=== PATIENT | male | born 1955 | race Caucasian/White ===

== ENCOUNTER 2020-12-27 18:38 | Observation (INO) ==
[2020-12-27 20:05] LABS: ABS Basophils 0.1 10^3/ul (0-0.2); ABS Eosinophils 0.1 10^3/ul (0-0.6); ABS Lymphocytes 1.7 10^3/ul (1.0-4.8); ABS Neutrophils 7.9 10^3/ul (1.5-7.7); Eosinophil % 0.6 %; Hematocrit 49 % (42-52); Hemoglobin 16.8 g/dL (14.0-18.0); Lymphocyte % 15.6 %; Mean Corpuscular HGB Conc 35 g/dL (31-36); Mean Corpuscular Hemoglobin 34 pg (27-31); Mean Corpuscular Volume 98 fL (80-94); Mean Platelet Volume 7.1 fL (7.4-10.4); Nucleated Red Blood Cells % 0.1; Platelet Count 208 10^3/uL (150-450); Red Blood Count 4.95 10^6 /uL (4.18-5.48); Red Cell Distribution Width 13 % (10-15); White Blood Count 10.8 10^3/uL (3.5-10.8)
[2020-12-27 20:22] LABS: Albumin 4.7 g/dL (3.2-5.2); Albumin/Globulin Ratio 1.4 (1-3); Calcium 10.4 mg/dL (8.6-10.3); Globulin 3.3 g/dL (2-4); Potassium 3.5 mmol/L (3.5-5.0); Total Bilirubin 0.9 mg/dL (0.2-1.0)
[2020-12-27 20:24] LABS: Troponin I 0.01 ng/mL (<0.03)
[2020-12-27] MEDS ORDERED: Iohexol 300 (CONTRAST) 10 ML SDV IV ONE (20:30)
[2020-12-27] MEDS ORDERED: Piperacillin/Tazobac ADVAN 3.375 GM in NS 0.9% 100 ml BAG 100 ML IV ONE (22:04)
[2020-12-27] MEDS ORDERED: HYDROmorphone 1 MG/1 ML SYRINGE IV SLOW PU PRN (22:31)
[2020-12-27] MEDS ORDERED: Ondansetron 4 mg VIAL 2 MG/ML 2 ml VIAL IV PRN (22:36)
[2020-12-27 23:07] LABS: Rapid COVID-19 Molecular Undetected (Undetected)
[2020-12-27] MEDS ORDERED: Zosyn per Pharmacy NOTE FOLLOW UP PRN (23:51)
[2020-12-28] MEDS: NS 0.9% 1000 ml BAG 1,000 ML IV SCH ×2 (01:11→11:23)
[2020-12-28 01:49] LABS: Urine Appearance Clear; Urine Bilirubin Negative (Negative); Urine Blood Negative (Negative); Urine Color Yellow; Urine Glucose Negative (Negative); Urine Ketones 1+ (Negative); Urine Nitrite Negative (Negative); Urine Protein Negative (Negative); Urine Urobilinogen Negative (Negative)
[2020-12-28 01:55] LABS: Urine Specific Gravity > 1.060 (1.002-1.030)
[2020-12-28] MEDS: Piperacillin/Tazobactam VIAL 3.375 GM in NS 0.9% 100 ml BAG 100 ML IVPB SCH ×2 (02:17→11:15)
[2020-12-28 08:12] LABS: Albumin 3.8 g/dL (3.2-5.2); Albumin/Globulin Ratio 1.5 (1-3); Globulin 2.5 g/dL (2-4); Potassium 3.6 mmol/L (3.5-5.0); Total Bilirubin 0.8 mg/dL (0.2-1.0); Total Protein 6.3 g/dL (6.4-8.9)
[2020-12-28] MEDS ORDERED: Ondansetron 4 mg VIAL 2 MG/ML 2 ml VIAL IV PRN (10:00)
[2020-12-28] MEDS ORDERED: Naloxone 0.4 mg VIAL 0.4 mg/ml 1 ml VIAL IV PRN (10:00)
[2020-12-28] MEDS ORDERED: fentaNYL 100 mcg/2 ml 50 MCG/ML VIAL IV PRN (10:00)
[2020-12-28] MEDS ORDERED: DiMENhydriNATE IV 50 mg/ml 1 ml VIAL IV PUSH PRN (10:00)
[2020-12-28] MEDS ORDERED: oxyCODONE/Acetamin 5/325 mg TAB PO PRN (10:00)
[2020-12-28] MEDS ORDERED: Bupivacaine 0.25% SDV 30 ML ONE (15:06)
[2020-12-28] MEDS ORDERED: Propofol 10 MG/ML 20 ML BTL ONE (15:47)
[2020-12-28] MEDS ORDERED: fentaNYL 100 mcg/2 ml 50 MCG/ML VIAL ONE (15:47)
[2020-12-28] MEDS ORDERED: Rocuronium 50 mg VIAL 10 mg/ml 5 ml VIAL (50 mg) ONE (15:48)
[2020-12-28] MEDS ORDERED: Lidocaine 2% PF 5 ML VIAL ONE (15:48)
[2020-12-28] MEDS ORDERED: Metoprolol Tartrate 5 mg VIAL 5 ml VIAL (1 mg/ml) ONE (16:25)
[2020-12-28] MEDS ORDERED: Ondansetron 4 mg VIAL 2 MG/ML 2 ml VIAL ONE (17:29)
[2020-12-28] MEDS ORDERED: HYDROmorphone 1 MG/1 ML SYRINGE ONE (17:29)
[2020-12-28 19:53] VITALS: BP 122/96
== END 2020-12-28 19:50 | disposition short-term general hospital (02) ==
LOC: SSU 18:38 → ED 18:38 → SSU 12-29 00:03
PROVIDERS: ADMIT Surgery; ATTEND Surgery

== ENCOUNTER 2024-03-28 07:05 | Inpatient (IN) ==
[2024-03-28] MEDS: Albuterol/Ipratropium NEB.SOL (2.5/0.5 MG) 3 ML NEB.SOLN INH ONE ×2 (07:17→07:18)
[2024-03-28 07:23] LABS: ABS Basophils 0.1 10^3/uL (0.0-0.1); ABS Lymphocytes 0.6 10^3/uL (1.0-4.8); ABS Monocytes 1.2 10^3/uL (0.0-1.1); ABS Neutrophils 12.8 10^3/uL (1.5-7.6); Eosinophil % 0.1 %; Hematocrit 44.7 % (38-53); Hemoglobin 15.3 g/dL (13.2-16.3); Lymphocyte % 3.9 %; Mean Corpuscular Hemoglobin 33.5 pg (27-33); Mean Corpuscular Hgb Conc 34.3 g/dL (31-36); Mean Corpuscular Volume 97.6 fL (80-97); Platelet Count 200 10^3/uL (150-450); Red Blood Count 4.58 10^6/uL (4.06-5.63); Red Cell Distribution Width 13.1 % (12-17); White Blood Count 14.7 10^3/uL (3.6-10.2)
[2024-03-28 08:22] LABS: Albumin 4.3 g/dL (3.5-5.7); Albumin/Globulin Ratio 1.8 (1-3); Creatinine, Serum 0.83 mg/dL (0.67-1.17); Globulin 2.4 g/dL (2-4); Potassium 4.1 mmol/L (3.5-5.0); Total Bilirubin 0.6 mg/dL (0.2-1.0); Total Protein 6.7 g/dL (6.4-8.9); eGFR CKD-EPI 94.7 (>60)
[2024-03-28] MEDS: guaiFENesin 100 mg/5 ml LIQ unit dose cup PO ONE (10:13)
[2024-03-28] MEDS: Benzocaine/Menthol LOZ PO ONE (10:13)
[2024-03-28] MEDS ORDERED: Polyethylene Glycol 3350 17 GM PACKET PO PRN (10:22)
[2024-03-28] MEDS ORDERED: Al Hydrox/Mg Hydrox/Simet LIQ 30 ML UDC PO PRN (10:22)
[2024-03-28] MEDS ORDERED: Albuterol/Ipratropium NEB.SOL (2.5/0.5 MG) 3 ML NEB.SOLN INH PRN (11:18)
[2024-03-28] MEDS: Albuterol 2.5mg/3 ml (0.083%) NEB.SOLN INH ONE (11:25)
[2024-03-28] MEDS: Azithromycin 500 mg/250 ml NS 500 MG/250 ML BAG IVPB SCH (12:51)
[2024-03-28] MEDS: Enoxaparin 40 MG/0.4 ML SYR SUBCUT SCH (12:52)
[2024-03-28] MEDS: methylPREDNISolone SOD SUCC 125 mg 2 ML VIAL IV ONE (13:40)
[2024-03-28] MEDS: Albuterol/Ipratropium NEB.SOL (2.5/0.5 MG) 3 ML NEB.SOLN INH SCH (13:40)
[2024-03-28] MEDS ORDERED: Colesevelam 625 mg TAB (NF) PO SCH (14:00)
[2024-03-28] MEDS: methylPREDNISolone SOD SUCC 40 mg/ml 1 ml VIAL IV SCH (22:36)
[2024-03-29] MEDS: COLESEVELAM 625 MG PO SCH (00:11)
[2024-03-29] MEDS: Albuterol/Ipratropium NEB.SOL (2.5/0.5 MG) 3 ML NEB.SOLN INH PRN (00:47)
[2024-03-29] MEDS: guaiFENesin 100 mg/5 ml LIQ unit dose cup PO PRN (01:24)
[2024-03-29 05:55] LABS: ABS Lymphocytes 0.5 10^3/uL (1.0-4.8); ABS Monocytes 0.4 10^3/uL (0.0-1.1); ABS Neutrophils 10.6 10^3/uL (1.5-7.6); Hematocrit 42.5 % (38-53); Hemoglobin 14.4 g/dL (13.2-16.3); Lymphocyte % 4.3 %; Mean Corpuscular Hemoglobin 33.5 pg (27-33); Mean Corpuscular Volume 98.7 fL (80-97); Mean Platelet Volume 7.4 fL (7.5-11.2); Platelet Count 179 10^3/uL (150-450); Red Cell Distribution Width 13.3 % (12-17); White Blood Count 11.6 10^3/uL (3.6-10.2)
[2024-03-29 06:12] LABS: Calcium 8.8 mg/dL (8.6-10.3); Creatinine, Serum 0.68 mg/dL (0.67-1.17); eGFR CKD-EPI 100.6 (>60)
[2024-03-29] MEDS: Azithromycin 500 mg/250 ml NS 500 MG/250 ML BAG IVPB SCH (13:00)
[2024-03-29] MEDS: Albuterol/Ipratropium NEB.SOL (2.5/0.5 MG) 3 ML NEB.SOLN INH SCH (13:08)
[2024-03-29] MEDS: methylPREDNISolone SOD SUCC 40 mg/ml 1 ml VIAL IV SCH (14:34)
[2024-03-30 06:07] LABS: ABS Lymphocytes 0.6 10^3/uL (1.0-4.8); ABS Monocytes 0.8 10^3/uL (0.0-1.1); ABS Neutrophils 14.3 10^3/uL (1.5-7.6); Hematocrit 41.9 % (38-53); Hemoglobin 14.4 g/dL (13.2-16.3); Lymphocyte % 3.9 %; Mean Corpuscular Hemoglobin 33.9 pg (27-33); Mean Corpuscular Hgb Conc 34.3 g/dL (31-36); Mean Corpuscular Volume 98.8 fL (80-97); Mean Platelet Volume 7.5 fL (7.5-11.2); Platelet Count 198 10^3/uL (150-450); Red Blood Count 4.25 10^6/uL (4.06-5.63); White Blood Count 15.6 10^3/uL (3.6-10.2)
[2024-03-30 06:27] LABS: Albumin 3.9 g/dL (3.5-5.7); Albumin/Globulin Ratio 1.8 (1-3); C Reactive Protein 51.42 mg/L (<8.01); Calcium 8.9 mg/dL (8.6-10.3); Creatinine, Serum 0.66 mg/dL (0.67-1.17); Globulin 2.2 g/dL (2-4); Potassium 4.1 mmol/L (3.5-5.0); Total Bilirubin 0.4 mg/dL (0.2-1.0); Total Protein 6.1 g/dL (6.4-8.9); eGFR CKD-EPI 101.5 (>60)
[2024-03-30] MEDS: methylPREDNISolone SOD SUCC 40 mg/ml 1 ml VIAL IV SCH ×2 (12:30→12:53)
[2024-03-31 06:39] LABS: ABS Lymphocytes 0.6 10^3/uL (1.0-4.8); ABS Monocytes 0.8 10^3/uL (0.0-1.1); ABS Neutrophils 10.9 10^3/uL (1.5-7.6); Hematocrit 41.4 % (38-53); Hemoglobin 14.2 g/dL (13.2-16.3); Mean Corpuscular Hemoglobin 33.8 pg (27-33); Mean Corpuscular Hgb Conc 34.2 g/dL (31-36); Mean Corpuscular Volume 98.8 fL (80-97); Mean Platelet Volume 7.4 fL (7.5-11.2); Platelet Count 193 10^3/uL (150-450); Red Blood Count 4.19 10^6/uL (4.06-5.63); Red Cell Distribution Width 13.2 % (12-17); White Blood Count 12.3 10^3/uL (3.6-10.2)
[2024-03-31 07:00] LABS: Calcium 8.9 mg/dL (8.6-10.3); Creatinine, Serum 0.71 mg/dL (0.67-1.17); Magnesium 2.1 mg/dL (1.9-2.7); Potassium 4.6 mmol/L (3.5-5.0); eGFR CKD-EPI 99.3 (>60)
[2024-03-31] MEDS: Nicotine GUM 4MG FRUIT FLAVOR PO PRN (20:27)
[2024-04-01] MEDS: methylPREDNISolone SOD SUCC 40 mg/ml 1 ml VIAL IV SCH (16:15)
[2024-04-02] MEDS: methylPREDNISolone SOD SUCC 40 mg/ml 1 ml VIAL IV SCH (21:25)
[2024-04-02] MEDS: Benzocaine/Menthol LOZ MT PRN (22:22)
[2024-04-03 09:55] VITALS: BP 156/89
== END 2024-04-03 13:30 | disposition home or self-care (01) | DRG 871 ==
LOC: EDHOLD 07:05 → ED 07:05 → SUATTDRO 11:38 → ICU 12:37 → MEDTELE 16:17 → MED 03-31 05:58
PROVIDERS: ADMIT Internal Medicine; ATTEND Student in an Organized Health Care Education/Training Program